=== PATIENT | female | born 1980 | race Caucasian/White ===

== ENCOUNTER 2016-12-24 11:47 | Day surgery (SDC) | payer OTHER ==
[~2016-12-24] VITALS: Ht 152.4 cm; Wt 91.4 kg
[~2016-12-24 11:47] MED LIST: ADVAIR DISKUS; DICY10CA60 PO; EPIPEN; IBUP-1542 PO; KETOCONAZOLE; LORAZEPAM; METO-53 PO; OMEPRAZOLE; PROZAC; XOP15INH
[2016-12-24 12:28] VITALS: Ht 152.4 cm; Wt 91.4 kg
[2016-12-24] MEDS ORDERED: AMLO-145 PO (12:40)
[2016-12-24] MEDS ORDERED: ERGO500037 PO (12:40)
[2016-12-24] MEDS ORDERED: ALBU18HF INHALATION (12:40)
[2016-12-24] MEDS ORDERED: RANI300T PO (12:40)
[2016-12-24 12:57] VITALS: BP 112/68; PULSE 63; RESP 19
[2016-12-24] MEDS ORDERED: PROPOFOL 40 ML ONE (13:25)
[2016-12-24] MEDS ORDERED: MIDAZOLAM 1 MG/ML 2 ML INJ ONE (13:26)
[2016-12-24] MEDS ORDERED: FENTAnyl 50 MCG/ML VIAL ONE (13:26)
[2016-12-24] MEDS ORDERED: EPHEDrine SULFATE 50 MG/5 ML SYG ONE (13:28)
[2016-12-24 14:38] VITALS: BP 100/73; PULSE 84; RESP 18
--- NOTE | 2016-12-24 17:28 | GILP ---
DATE OF PROCEDURE: 12/24/2016 DATE: 12/24/2016 NAME OF PROCEDURE: Esophagogastroduodenoscopy with biopsies. BRIEF HISTORY AND INDICATIONS: The patient is being evaluated for abdominal pain, dyspepsia. SURGEON: Ellen Cruz MD. PREMEDICATION: Monitored anesthesia care by anesthesiologist. INSTRUMENT USED: Olympus panendoscope. TECHNIQUE: After informed consent, with the patient/relatives understanding the procedure, its indic ations, potential risks and complications, including but not limited to: allergic reaction, bleeding , perforation or infection, and after all pertinent questions were answered to the patients satisfac tion, the patient/relatives signed witnessed informed consent. Following this, premedication was administered slowly IV push under careful cardiovascular and respi ratory monitoring with pulse oximetry, automatic blood pressure and chinchilla machine operator. Once the sedative effect was achieved the patient was place in the left lateral decubitus, the panen doscope was introduced and advanced under visual control. Careful examination of the upper gastrointestinal tract, both on insertion as well as withdrawal of the instrument disclosed the following findings: ESOPHAGUS: The mucosa of the entire esophagus appears within normal limits. There is no evidence of esophagitis, varices, neoplasm or stricture. No hiatal hernia identified. STOMACH: Upon entrance to the stomach air was insufflated, the gastric kaiser distended normally. Th e mucosa of the fundus, body and antrum of the stomach shows erythema and edema of the mucosa. Two nodules/polyps were noted in the antrum of the stomach measuring 5 and 6 mm respectively. Biopsies were obtained. Biopsies were also obtained to rule out H. pylori infection. PYLORUS: The pylorus appears patent and within normal limits, with no evidence of gastric outlet obs truction. DUODENUM: The duodenal mucosa was carefully examined in the duodenal bulb as well as the second port ion of the duodenum and appears unremarkable with no evidence of duodenitis, ulcer or neoplasm. The instrument was then withdrawn, the patient tolerated the procedure well and was transfer out of the endoscopy suite awake, and in good condition to continue recovery under observation IMPRESSION: 1. Moderate gastritis, rule out Helicobacter pylori infection, biopsies were obtained. 2. Two antral nodules/polyps covered by a normal appearing mucosa measuring 5 and 6 mm. Biopsies w ere obtained. PLAN: Pathology will be reviewed as soon as available. The patient will be treated with PPIs. Fur ther recommendation will depend on her clinical course as well as review of biopsies. Dictated By: ELLEN CRUZ MS/JOSIE Conf#: [id number] DID#: [id number]
--- NOTE | 2016-12-24 17:42 | GILP ---
DATE OF PROCEDURE: NAME OF PROCEDURE: Colonoscopy with biopsies. SURGEON: Ellen Cruz MD HISTORY AND INDICATIONS: The patient is being evaluated for abdominal pain. PREMEDICATION: Monitored anesthesia care by anesthesiologist. INSTRUMENT USED: Olympus colonoscope. PREPARATION: Adequate. TECHNIQUE: After informed consent, with the patient/relatives understanding the procedure, its frida cations potential risks and complications, including but not limited to allergic reaction, bleeding, perforation, infection, missed lesions and after all pertinent questions were answered to the patie nt's satisfaction, the patient/relatives signed the witnessed informed consent. Following this, premedication was administered slowly IV push by under careful cardiovascular and re spiratory monitoring with pulse oximetry, automatic blood pressure and teletypesetter monitor. Once the sedativ e effect was achieved, the patient was placed in the left lateral decubitus position, digital rectal examination was performed. The colonoscope was then introduced and advanced under visual control th roughout all segments of the colon including: the rectum, sigmoid, descending colon, splenic flexure , transverse colon, hepatic flexure, ascending colon and finally reaching the cecum which was clearl y identified by transillumination, finger indentation and the ileocecal valve. Careful examination o f the mucosa of the lower gastrointestinal tract both on insertion as well as withdrawal of the inst rument disclosed the following findings: Rectal Examination: No evidence of perirectal disease, no masses. Colonic Mucosa: The colonic mucosa is remarkable for a 12 mm thickened fold versus polyp in the sig moid colon. Biopsies were obtained. The remainder of colonic mucosa is unremarkable. The ileoceca l valve was clearly identified and appears unremarkable. The instrument was withdrawn, re-examining the mucosa in detail. No additional abnormalities are noted with exception of moderate-sized inter nal hemorrhoids. The instrument was then withdrawn. The patient tolerated the procedure well and was transferred out of the endoscopy suite awake and in good condition to continue recovery under observation. IMPRESSION: 1. A 12 mm fold versus polyp in the sigmoid colon. Biopsies obtained. 2. Moderate-sized internal hemorrhoids. PLAN: Pathology will be reviewed as soon as available. Further recommendation will depend on patie nt's clinical course. If histology is adenomatous, polypectomy should be attempted. However, in th at case, the polyp would be a broad-based polyp that creates a somewhat increased risk of complicati ons that should be addressed with the patient prior to the procedure. Dictated By: ELLEN CRUZ MS/JOSIE Conf#: [id number] DID#: [id number]
== END 2016-12-25 16:20 | disposition home or self-care (01) ==
LOC: GIL 11:47
PROVIDERS: ATTEND Internal Medicine Gastroenterology
DX: K29.50 Unspecified chronic gastritis without bleeding (principal); D12.5 Benign neoplasm of sigmoid colon; K64.8 Other hemorrhoids; E66.9 Obesity, unspecified; Z68.39 Body mass index [BMI] 39.0-39.9, adult
CPT/HCPCS: 43239; 45380; 88305; 88312; J2250; J3010; Z7610

== ENCOUNTER 2018-06-23 13:32 | Emergency (ER) | END 2018-06-23 16:15 | disposition home or self-care (01) ==

== ENCOUNTER 2018-07-01 21:02 | Emergency (ER) | END 2018-07-02 01:27 | disposition home or self-care (01) ==

== ENCOUNTER 2019-05-16 08:15 | Day surgery (SDC) | payer OTHER ==
[~2019-05-16] VITALS: Ht 152.4 cm; Wt 94.7 kg
[~2019-05-16 08:15] MED LIST changes: -ADVAIR DISKUS; +ALBU18HF INHALATION; +AMLO-145 PO; +CETI10CA PO; -DICY10CA60 PO; +ERGO500013 PO; +FLUT9.9S NASAL; +GUAI5SYR2 PO; -KETOCONAZOLE; +MECL12.574 PO; +PRED20TA PO; -PROZAC; +RANI300T PO; +RANITIDINE; -XOP15INH
[2019-05-16 11:02] VITALS: Ht 152.4 cm; Wt 94.7 kg
--- NOTE | 2019-05-16 11:07 | PREAC ---
Date/Time of Note Date/Time of Note DATE: 05/16/19 TIME: 11:06 Anesthesia Eval and Record Evaluation Time Pre-Procedure Interview DATE: 05/16/19 TIME: 11:06 Age 38 Sex female NPO: 8 hrs Preoperative diagnosis gerd Planned procedure egd, colonoscopy Past Medical History Past Medical History: Includes Cardio: HTN Pulm: Asthma GI: Morbid obesity Surgery & Anesthesia Issues No known issue Meds Anticoagulation: No Beta Maria R within 24 hr: No Reason Beta Maria R not given: Pt. not on B-Maria R Active Scripts Meclizine Hcl* (Antivert*) 12.5 Mg Tab, 25 MG PO Q6H PRN for DIZZINESS, #20 TAB Prov:MANDY ONEIL MD 07/02/18 Prednisone* (Prednisone*) 20 Mg Tab, 40 MG PO DAILY for 4 Days, TAB Prov:MELISSA HINES PA-C 06/23/18 Ibuprofen* (Motrin*) 600 Mg Tab, 600 MG PO Q6, #30 TAB Prov:MELISSA HINES PA-C 06/23/18 Guaifenesin-Dextromethorphan* (Robitussin* DM) 100MG/10MG/5ML Syrup, 10 ML PO Q6H PRN for COUGH for 5 Days, ML Prov:MELISSA HINES PA-C 06/23/18 Fluticasone Propionate (Flonase Allergy Relief) 9.[address] [place].susp, 2 SPRAY NASAL DAILY, #1 BOTTLE TO EACH NOSTRIL Prov:MELISSA HINES PA-C 06/23/18 Cetirizine Hcl* (Zyrtec*) 10 Mg Capsule, 10 MG PO DAILY, #14 TAB.CHEW Prov:MELISSA HINES PA-C 06/23/18 Reported Medications Albuterol Sulfate* (Ventolin HFA*) 18 Gm Hfa.aer.ad, 2 PUFF INHALATION Q6H for SHORTNESS OF BREATH, #1 INHALER 12/24/16 Ergocalciferol (Vitamin D2) (VITAMIN D2) 50,000 Unit Capsule, 11955 UNIT PO, CAP 12/24/16 Amlodipine Besylate* (Amlodipine Besylate*) 5 Mg Tablet, 5 MG PO DAILY, #30 TAB 12/24/16 Ranitidine Hcl* (Ranitidine Hcl*) 300 Mg Tablet, 300 MG PO HS, #30 TAB 12/24/16 [Lorazepam] No Conflict Check 02/06/16 [Epipen] No Conflict Check 02/06/16 Metoprolol (Lopressor) 50 Mg Tablet, 50 MG PO BID 10/08/12 Meds reviewed: Yes Allergies Coded Allergies: Penicillins (Verified Adverse Reaction, Severe, HIVES,NARROWING AIRWAY, 12/24/16) Allergies Reviewed: Yes Labs/Studies Labs Reviewed: Reviewed by anesthesiologist test: Negative Pre-procedure Exam Airway: Adequate mouth opening, Adequate thyromental dist Mallampati: Mallampati II Teeth: Normal Lung: Normal Heart: Normal ASA Physical Status ASA physical status: 3 Emergency: None Planned Anesthetic General/MAC: Mask, MAC Pre-operative Attestations Prior to commencing anesthesia and surgery, the patient was re-evaluated, there was verification of: *The patient's identity *The results of appropriate recent lab work and preoperative vital signs *The above evaluation not changing prior to induction *Anesthetic plan, risk benefits, alternative and complications discussed with patient/family; questions answered; patient/family understands, accepts and wishes to proceed. RADHA ALMONTE May 16, 2019 11:07
[2019-05-16 11:22] VITALS: BP 111/65; PULSE 58; RESP 17
[2019-05-16 12:43] VITALS: BP 117/55; RESP 20
--- NOTE | 2019-05-17 07:25 | PAC ---
Date/Time of Note Date/Time of Note DATE: 05/17/19 TIME: 07:25 Post-Anesthesia Notes Post-Anesthesia Note Last documented vital signs Vital Signs Date Temp Pulse Resp B/P (MAP) Pulse Ox O2 O2 Flow FiO2 Time Delivery Rate 05/16/19 20 117/55 99 12:43 (75) 05/16/19 97.6 58 Room Air 11:22 Activity: WNL Respiratory function: WNL Cardiovascular function: WNL Mental status: Baseline Pain reasonably controlled: Yes Hydration appropriate: Yes Nausea/Vomiting absent: Yes RADHA ALMONTE May 17, 2019 07:25
== END 2019-05-16 16:46 | disposition home or self-care (01) ==
LOC: GIL 08:15
PROVIDERS: ATTEND Internal Medicine Gastroenterology
DX: D12.5 Benign neoplasm of sigmoid colon (principal); D12.3 Benign neoplasm of transverse colon; K64.8 Other hemorrhoids; K29.30 Chronic superficial gastritis without bleeding; I10 Essential (primary) hypertension; J45.909 Unspecified asthma, uncomplicated; E66.01 Morbid (severe) obesity due to excess calories; Z68.41 Body mass index [BMI] 40.0-44.9, adult
CPT/HCPCS: 43239; 45385; 88305; 88312; Z7610

== ENCOUNTER 2019-06-07 05:22 | Day surgery (SDC) | payer OTHER ==
[2019-06-03 11:53] VITALS: Ht 160 cm; Wt 95.5 kg
[2019-06-07] VITALS (17 sets, daily range): BP systolic 111–153; BP diastolic 63–88; PULSE 60–108; RESP 13–21
[~2019-06-07] VITALS: Ht 160 cm; Wt 95.5 kg
[~2019-06-07 05:22] MED LIST changes: +BEN50 PO; +DIPH25CA6 PO; -EPIPEN; -ERGO500013 PO; -GUAI5SYR2 PO; -IBUP-1542 PO; +LORA1TAB PO; -LORAZEPAM; -MECL12.574 PO; +OMEP40CA6 PO; -OMEPRAZOLE; +OMEPRAZOLE PO; -PRED20TA PO; -RANI300T PO
[2019-06-07] MEDS ORDERED: LACTATED RINGER'S 1,000 ML IV SCH (06:30)
[2019-06-07] MEDS ORDERED: BUPIVACAINE 0.5%/EPI (SDV) 10 ML INJ ONE (07:22)
[2019-06-07] MEDS ORDERED: DESFLURANE 15 MIN ONE (07:30)
[2019-06-07] MEDS ORDERED: FENTAnyl 50 MCG/ML VIAL ONE (07:34)
[2019-06-07] MEDS ORDERED: METOCLOPRAMIDE 10 MG INJ ONE (07:34)
[2019-06-07] MEDS ORDERED: PROPOFOL 20 ML ONE (07:34)
[2019-06-07] MEDS ORDERED: MIDAZOLAM 1 MG/ML 2 ML INJ ONE (07:34)
[2019-06-07] MEDS ORDERED: ROCURONIUM 50 MG INJ ONE (07:34)
[2019-06-07] MEDS ORDERED: ROPIVACAINE 0.2% 20 ML VIAL ONE (07:52)
[2019-06-07] MEDS ORDERED: CLINDAMYCIN 600 MG/D5W (PMX) 50 ML IVPB ONE (07:56)
[2019-06-07] MEDS ORDERED: LIDOCAINE 2% (SDV) 5 ML INJ ONE (07:56)
[2019-06-07] MEDS ORDERED: SUGAMMADEX SODIUM 200 MG/2 ML VIAL IV ONE (08:47)
[2019-06-07] MEDS ORDERED: ONDANSETRON 4 MG INJ ONE (08:47)
[2019-06-07] MEDS ORDERED: GLYCOPYRROLATE 0.4 MG INJ ONE (08:49)
[2019-06-07] MEDS ORDERED: NEOSTIGMINE 3 MG/3 ML SYRINGE ONE (08:49)
[2019-06-07] MEDS ORDERED: HYDROmorphONE 2 MG/ML SYG ONE (08:57)
[2019-06-07] MEDS ORDERED: POLYMYXIN/BACITRACIN 1L IRRIG IRR ONE (09:05)
[2019-06-07] MEDS ORDERED: FENTAnyl 50 MCG/ML VIAL IV PRN (09:30)
[2019-06-07] MEDS ORDERED: OXYCODONE/ACETAMINOPHEN (5/325) TAB PO PRN (09:30)
[2019-06-07] MEDS ORDERED: PROCHLORPERAZINE 10 MG INJ IV PRN (09:30)
[2019-06-07] MEDS ORDERED: MEPERIDINE 25 MG INJ IV PRN (09:30)
[2019-06-07] MEDS ORDERED: ONDANSETRON 4 MG INJ IV PRN (09:30)
[2019-06-07] MEDS ORDERED: HYDROmorphONE 1 MG/5 ML IV SYRINGE IV PRN (09:30)
[2019-06-07] MEDS ORDERED: BUPIVACAINE 0.25% (MPF) 30 ML INJ ONE (10:12)
[2019-06-07] MEDS ORDERED: BUPIVACAINE 0.25%/EPI (SDV) 10 ML INJ ONE (10:12)
== END 2019-06-07 19:00 | disposition home or self-care (01) ==
LOC: SDS 05:22
PROVIDERS: ATTEND Podiatrist Foot & Ankle Surgery
DX: M24.171 Other articular cartilage disorders, right ankle (principal); I10 Essential (primary) hypertension; J45.909 Unspecified asthma, uncomplicated
CPT/HCPCS: 29891; 73600; 73610; C1713; J0780; J1170; J2250; J2405; J2710; J2765; J2795; J3010; Z7512; Z7610

== ENCOUNTER 2019-06-18 10:26 | Emergency (ER) | payer OTHER ==
[~2019-06-18] VITALS: Ht 157.5 cm; Wt 95.5 kg
[~2019-06-18 10:26] MED LIST changes: -CETI10CA PO; +DICY10CA40 PO; +DIPH25CA47 PO; -DIPH25CA6 PO; +ELEC100095 PO; -FLUT9.9S NASAL; +LACT1CAP57 PO; +OMEP40CA38 PO; -OMEP40CA6 PO; -OMEPRAZOLE PO; +ONDA4TAB14 PO; -RANITIDINE
[2019-06-18 10:39] VITALS: Ht 157.5 cm; Wt 95.5 kg
[2019-06-18] MEDS ORDERED: ONDANSETRON (ODT) 4 MG TAB ODT STA (11:01)
[2019-06-18] MEDS ORDERED: DICYCLOMINE 10 MG CAP PO ONE (11:30)
[2019-06-18 12:22] VITALS: BP 128/82; PULSE 83; RESP 20
== END 2019-06-18 12:20 | disposition home or self-care (01) ==
LOC: FTE 10:26
DX: R19.7 Diarrhea, unspecified (principal); I10 Essential (primary) hypertension; R30.0 Dysuria
CPT/HCPCS: 81003; 81025; Z7502; Z7610; 99283